=== PATIENT | female | born 1985 | race African-American/Black ===

== ENCOUNTER 2020-08-11 04:44 | Emergency (ER) | payer SELFPAY ==
[~2020-08-11] VITALS: Ht 160 cm; Wt 73.0 kg
[2020-08-11 04:53] VITALS: BP 137/72
== END 2020-08-11 08:15 | disposition home or self-care (01) ==
LOC: ER 04:44
DX: R10.11 Right upper quadrant pain (principal); M79.18 Myalgia, other site; V43.52XA Car driver injured in collision with other type car in traffic accident, initial encounter; Y93.89 Activity, other specified; Y92.488 Other paved roadways as the place of occurrence of the external cause
CPT/HCPCS: 71101; 99284